=== PATIENT | male | born 1960 | race Asian ===

== ENCOUNTER 2022-05-28 23:08 | Emergency (ER) | payer OTHER ==
[~2022-05-28] VITALS: Ht 172.7 cm; Wt 86.4 kg
[2022-05-28] MEDS ORDERED: AMLO-258 PO (23:15)
[2022-05-29] MEDS ORDERED: AmLODIPine BESYLATE 10 MG TABLET PO ONE (01:00)
[2022-05-29 01:51] LABS: BASOPHILS % (AUTO) 0.9 % (0.0-2.0); EOSINOPHILS % (AUTO) 3.9 % (1.0-6.0); HEMATOCRIT 42.6 % (41-53); HEMOGLOBIN 13.8 g/dL (13.5-17.5); LYMPHOCYTES # (AUTO) 2.3 K/uL (1.0-4.8); LYMPHOCYTES % (AUTO) 31.2 % (22.0-44.0); MEAN CORPUSCULAR HEMOGLOBIN 24.2 pg (26.0-34.0); MEAN CORPUSCULAR HGB CONC 32.5 G/dL (31.0-37.0); MEAN CORPUSCULAR VOLUME 75 fL (80-100); MONOCYTES # (AUTO) 0.5 K/uL (0.1-1.0); MONOCYTES % (AUTO) 6.7 % (2.0-9.0); NEUTROPHILS # (AUTO) 4.3 K/uL (1.8-7.7); NEUTROPHILS % (AUTO) 57.3 % (40.0-70.0); PLATELET COUNT (AUTO) 270 K/uL (150-450); RED BLOOD CELL COUNT(AUTO) 5.71 MIL/uL (4.50-5.90); RED CELL DISTRIBUTION WIDTH 21.3 % (11.5-14.5)
[2022-05-29 02:00] LABS: CALCIUM, TOTAL 9.3 mg/dL (8.8-10.5); CREATININE 1.28 mg/dL (0.60-1.30); POTASSIUM 3.7 mmol/L (3.5-5.1)
[2022-05-29 02:07] LABS: ALBUMIN 3.9 g/dL (3.4-5.0); BILIRUBIN,TOTAL 0.3 mg/dL (0.1-1.0); TOTAL PROTEIN, SERUM 8.3 g/dL (6.4-8.2)
[2022-05-29] MEDS ORDERED: HydrALAZINE HCL 20 MG/ML VIAL IVP ONE (03:15)
[2022-05-29] MEDS ORDERED: AMLO-258 PO (03:33)
[2022-05-29 03:34] VITALS: BP 176/105
== END 2022-05-29 04:16 | disposition home or self-care (01) ==
LOC: EMS 23:09
DX: I10 Essential (primary) hypertension (principal); Z79.899 Other long term (current) drug therapy
CPT/HCPCS: 99285; 80053; 84484; 85025; 36415; 96374; 93005; J0360